=== PATIENT | male | born 1995 | race Caucasian/White ===

== ENCOUNTER 2019-06-14 23:31 | Emergency (ER) | payer SELFPAY ==
[2019-06-14 23:41] VITALS: BP 118/78
== END 2019-06-15 01:20 | disposition left against medical advice (07) ==
LOC: JD.ED 23:31
DX: Z53.21 Procedure and treatment not carried out due to patient leaving prior to being seen by health care provider (principal)

== ENCOUNTER 2019-06-29 01:49 | Emergency (ER) | payer SELFPAY ==
[2019-06-29 02:06] VITALS: BP 94/64; PULSE 93
[2019-06-29] MEDS ORDERED: predniSONE 20 MG Tab PO ONE (02:25)
--- NOTE | 2019-06-29 02:25 | EDM.PDOC ---
ED HPI GENERAL MEDICAL PROBLEM - General Chief Complaint: Respiratory Problem Stated Complaint: COUGH CONGESTION SOB Time Seen by Provider: 06/29/19 02:15 - History of Present Illness INITIAL COMMENTS - FREE TEXT/NARRATIVE: 24-year-old male presents to the emergency room with worsening asthma. It has been getting worse over the last 24-36 hours. However when he came outside tonight started to improve by the time he got to the waiting room he was doing much better. The patient was on a week of oral steroids that he had laying around and finish those 2 days ago. He doesn't recall what the strength was. The patient is currently using albuterol MDI 6 or 7 times a day. He does not have fever chills or worsening cough he has some intermittent allergic rhinitis. The patient was doing really good with his asthma for quite some time but then he started dating. He did this for a urinary catheter and gave it up he 's never had reasonable control of his asthma since that time. - Related Data Allergies Allergy/AdvReac Type Severity Reaction Status Date / Time No Known Allergies Allergy Verified 06/29/19 02:04 Home Meds: Home Meds Albuterol Sulfate [Albuterol Sulfate Hfa] 2 puff INH Q4HR PRN 05/31/19 [History] Fluticasone Propionate [Flovent HFA 110 MCG] 1 puff INH BID #1 puff 06/29/19 [Rx ] predniSONE 20 mg PO WITHBREAKFAST #20 tab 06/29/19 [Rx] Past Medical History - Past Health History Medical/Surgical History: Denies Medical/Surgical History Respiratory History: Reports: Asthma Neurological History: Reports: Concussion Social & Family History - Family History Family Medical History: Noncontributory - Tobacco Use Smoking Status *Q: Former Smoker Used Tobacco, but Quit: Yes Month/Year Tobacco Last Used: 06/13/2019 - Caffeine Use Caffeine Use: Reports: Coffee - Recreational Drug Use Recreational Drug Use: No ED ROS GENERAL - Review of Systems Review Of Systems: See Below Constitutional: Reports: No Symptoms HEENT: Reports: No Symptoms Respiratory: Reports: Shortness of Breath, Wheezing Cardiovascular: Reports: No Symptoms Endocrine: Reports: No Symptoms GI/Abdominal: Reports: No Symptoms : Reports: No Symptoms Musculoskeletal: Reports: No Symptoms Skin: Reports: No Symptoms Neurological: Reports: No Symptoms Psychiatric: Reports: No Symptoms ED EXAM, GENERAL - Physical Exam Exam: See Below Exam Limited By: No Limitations General Appearance: Alert, No Apparent Distress Eye Exam: Bilateral Eye: Normal Inspection Ears: Normal External Exam, Normal Canal, Normal TMs Nose: Normal Inspection, Normal Mucosa, No Blood Throat/Mouth: Normal Inspection, Normal Lips, Normal Teeth Head: Atraumatic, Normocephalic Neck: Normal Inspection, Supple, Non-Tender, Full Range of Motion. No: Lymphadenopathy (L), Lymphadenopathy (R) Respiratory/Chest: No Respiratory Distress, Lungs Clear, Normal Breath Sounds ( No wheezes crackles or rhonchi no grunting or retractions), Decreased Breath Sounds (Slightly diminished breath sounds) Cardiovascular: Normal Peripheral Pulses, Regular Rate, Rhythm, No Edema GI/Abdominal: Normal Bowel Sounds, Soft, Non-Tender, No Organomegaly Course - Vital Signs Last Recorded V/S: Last Vital Signs Temp 36.2 C 06/29/19 02:04 Pulse 93 06/29/19 02:04 Resp 17 06/29/19 02:04 BP 94/64 06/29/19 02:04 Pulse Ox 93 L 06/29/19 02:04 - Orders/Labs/Meds Meds: Medications Discontinued Medications Generic Name Dose Route Start Last Admin Trade Name Mary PRN Reason Stop Dose Admin Prednisone 60 mg 06/29/19 02:25 06/29/19 02:35 Prednisone PO 06/29/19 02:26 60 mg ONETIME ONE Administration - Re-Assessments/Exams Free Text/Narrative Re-Assessment/Exam: 06/29/19 02:40 C just got off an uncertain dose of prednisone and we will put him on a prednisone taper also add Flovent and strongly encourage him to reestablish with a regular physician Departure - Departure Time of Disposition: 02:41 Disposition: Home, Self-Care 01 Clinical Impression: Asthma - Discharge Information Prescriptions: Fluticasone Propionate [Flovent HFA 110 MCG] 1 puff INH BID #1 puff predniSONE 20 mg PO WITHBREAKFAST #20 tab Referrals: PCP,None [Primary Care Provider] - Forms: ED Department Discharge Additional Instructions: Use the medications as directed. Return to the emergency room with any questions problems worsening symptoms You are strongly encouraged to establish with a new regular physician. Call the Hospital clinic [phone]
== END 2019-06-29 02:51 | disposition home or self-care (01) ==
LOC: JD.ED 01:49
DX: J45.909 Unspecified asthma, uncomplicated (principal); Z79.899 Other long term (current) drug therapy; Z87.891 Personal history of nicotine dependence
CPT/HCPCS: 99284; A9270; 99283

== ENCOUNTER 2021-11-06 18:13 | Emergency (ER) | payer OTHER ==
[2021-11-06 21:28] LABS: ACETAMINOPHEN 0 ug/mL (10-30)
[2021-11-07 01:06] VITALS: BP 116/78; PULSE 68
== END 2021-11-07 00:44 | disposition home or self-care (01) ==
LOC: JD.ED 18:13
DX: R45.4 Irritability and anger (principal); Z20.822 Contact with and (suspected) exposure to COVID-19
CPT/HCPCS: 36415; 80053; 80143; 80179; 80306; 80307; 81003; 84443; 85025; 99284; U0002

== ENCOUNTER 2022-09-23 15:36 | Emergency (ER) | payer SELFPAY ==
[2022-09-23 15:55] VITALS: BP 109/75; PULSE 101
[2022-09-23] MEDS ORDERED: Diphtheria,Pertussis(Acell),Tetanus Vaccine 0.5 ML Syringe IM ONE (16:00)
[2022-09-23] MEDS ORDERED: Lidocaine 1% 10 ML MDV INJECT ONE (16:00)
== END 2022-09-23 16:54 | disposition home or self-care (01) ==
LOC: JD.ED 15:36
DX: S01.81XA Laceration without foreign body of other part of head, initial encounter (principal); Z23 Encounter for immunization
CPT/HCPCS: 12013; 90471; 90715; 99282-25

== ENCOUNTER 2024-02-15 14:56 | Emergency (ER) | payer SELFPAY ==
[2024-02-15 16:26] VITALS: PULSE 70
[2024-02-15] MEDS: Azithromycin 250 MG Tab PO ONE (16:36)
[2024-02-15] MEDS: cefTRIAXone 500 MG, Lidocaine 1% 1 ML IM SCH (16:36)
[2024-02-15 16:45] VITALS: BP 110/69
[2024-02-15 17:05] LABS: C. TRACHOMATIS BY PCR DETECTED; N. GONORRHOEAE BY PCR DETECTED
== END 2024-02-15 16:45 | disposition home or self-care (01) ==
LOC: JD.ED 14:56
DX: A54.00 Gonococcal infection of lower genitourinary tract, unspecified (principal); A74.9 Chlamydial infection, unspecified; R30.0 Dysuria; J45.909 Unspecified asthma, uncomplicated
CPT/HCPCS: 87491; 87591; 96372; 99283; A9270; J0696; J3490